=== PATIENT | male | born 1990 | race Caucasian/White ===

== ENCOUNTER 2017-01-07 12:18 | Emergency (ER) | payer OTHER ==
[2017-01-07 12:28] VITALS: BP 156/90; PULSE 78; RESP 18; TEMP 97.6
[2017-01-07] MEDS ORDERED: PROPARACAINE 0.5% OPHTH DROPS 15 ML BTL ONE (13:00)
--- NOTE | 2017-01-07 13:18 | ED ---
General Adult HPI - General Chief complaint: Eye Problems Stated complaint: Eye Pressure-[facility] Time Seen by Provider: 01/07/17 13:00 Source: patient, RN notes reviewed Mode of arrival: ambulatory Limitations: no limitations - History of Present Illness Initial comments: Patient 26-year-old male who presents emergency room today with a chief complaint of bilateral eye irritation. He does admit that he was using a welding torch. 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 Patient does admit that he didn't notice some increased irritation to his eyes. He states started a few hours ago. Patient denies any other complaints or symptoms. Patient denies any recent fever, chills, shortness of breath, chest pain, back pain, abdominal pain, nausea or vomiting, numbness or tingling, dysuria or hematuria, constipation or diarrhea, headaches, or any other complaints. - Related Data Previous Rx's Medication Instructions Recorded Erythromycin Ophth Oint [Romycin 1 applic BOTH EYES QID 7 Days 01/07/17 Ophth Oint] Allergies Allergy/AdvReac Type Severity Reaction Status Date / Time Penicillins Allergy Unknown Verified 01/07/17 12:28 Review of Systems ROS Statement: Those systems with pertinent positive or pertinent negative responses have been documented in the HPI. ROS Other: All systems not noted in ROS Statement are negative. Past Medical History Past Medical History: No Reported History History of Any Multi-Drug Resistant Organisms: None Reported Past Surgical History: No Surgical Hx Reported Past Psychological History: No Psychological Hx Reported Smoking Status: Never smoker Past Alcohol Use History: Rare Past Drug Use History: None Reported General Exam - General Exam Comments Initial Comments: General: The patient is awake and alert, in no distress, and does not appear acutely ill. Eye: Pupils are equal, round and reactive to light, extra-ocular movements are intact. No nystagmus. Mild redness to the conjunctiva bilaterally. Watery discharge. Ears, nose, mouth and throat: There are moist mucous membranes and no oral lesions. Neck: The neck is supple, there is no tenderness or JVD. Cardiovascular: There is a regular rate and rhythm. No murmur, rub or gallop is appreciated. Respiratory: Lungs are clear to auscultation, respirations are non-labored, breath sounds are equal. No wheezes, stridor, rales, or rhonchi. Musculoskeletal: Normal ROM, no tenderness. Strength 5/5. Sensation intact. Pulses equal bilaterally 2+. Neurological: A&O x 3. CN II-XII intact, There are no obvious motor or sensory deficits. Coordination appears grossly intact. Speech is normal. Skin: Skin is warm and dry and no rashes or lesions are noted. Psychiatric: Cooperative, appropriate mood & affect, normal judgment. Limitations: no limitations Course Vital Signs 01/07/17 12:26 Temperature 97.6 F Pulse Rate 78 Respiratory 18 Rate Blood Pressure 156/90 O2 Sat by Pulse 100 Oximetry Procedures - Procedures Initial comment: Both left and right eye anesthetized with proparacaine drops. This did relieve patient's symptoms. Patient's eyes were stained with forcing checked underneath [place] lamp revealing no corneal abrasion or foreign bodies. Medical Decision Making - Medical Decision Making Patient will be started on antibiotic drops. Advised follow-up with [facility] in the next 2 days if symptoms do not completely resolve. Advised return for any other concerns. Disposition Clinical Impression: W[facility]ers' flash Disposition: HOME SELF-CARE Condition: Good Instructions: Keratitis (ED) Additional Instructions: Please use [id number] or visual tears without preservatives much as needed. Please use antibiotic drops as prescribed. Please follow-up with [facility] in 2 days symptoms are not completely resolved. Please return to emergency room for any other concerns. Prescriptions: Erythromycin Ophth Oint [Romycin Ophth Oint] 1 applic BOTH EYES QID 7 Days Referrals: None,Stated [Primary Care Provider] - 1-2 days Zenon Quintanilla MD [STAFF PHYSICIAN] - 1-2 days Time of Disposition: 13:14
== END 2017-01-07 13:31 | disposition home or self-care (01) ==
LOC: EC 12:18
DX: H16.131 Photokeratitis, right eye (principal); Z88.0 Allergy status to penicillin; W89.0XXA Exposure to welding light (arc), initial encounter; Y92.69 Other specified industrial and construction area as the place of occurrence of the external cause
CPT/HCPCS: 99283